=== PATIENT | male | born 1950 | race Caucasian/White ===

== ENCOUNTER 2023-10-05 09:41 | Day surgery (SDC) | payer MEDICARE, SELFPAY ==
[2023-10-04 10:00] VITALS: BMI 31.2
[2023-10-05 10:12] VITALS: BP 165/84; PULSE 63; RESP 18; TEMP 36.6; O2SAT 97
[2023-10-05] MEDS: LACTATED RINGERS 1000ML 1,000 ML 25 ML IV (10:12)
[2023-10-05 10:23] LABS: POC Glucose,Bedside 118 (70-110)
--- NOTE | 2023-10-05 10:31 | EXP.ANES.CKL ---
[facility] Disclaimer: The information contained in this section may have been updated after the patient was seen, as this information can be updated by other users. Medical History Hyperlipemia Diabetes type 2, controlled Hypertension Kidney stone Surgical History H/O lithotripsy Family History Other No significant family history Social History Smoking Status: Never smoker alcohol intake: never substance use type: denies use current occupational status: retired Travel in the last 8 weeks: None [facility] Anesthesia Checklist Patient Identification Patient Identification: Arm Band and Verbal (Name & ) Structural Data Admitted From: Home Planned Operative Procedure/s: Colonoscopy Consent for Planned Operative Procedure(s) Verified: Yes NPO Status Verified Time NPO: 00:00 Additional verifications Anesthesia Reactions: No Airway Assessment Mallampati Score:: Class III C-Spine Mobility Assessed: Yes TMJ Mobility Assessed: Yes Dentition: Poor Dentition Neurological Assessment Level of Consciousness: Awake Hx Seizures: No Numbness or tingling in extremities: No Anesthesia Plan Anesthesia Risk discussed: Yes Anesthesia Plan: Verified ASA Class: III Anesthesia Type: MAC
--- NOTE | 2023-10-05 10:42 | P.PCN_ITS ---
Procedure: Date: 10/05/23 Patient Date of :: 1950 Procedure Performed:: Total colonoscopy with multiple polypectomy Indications:: Patient is a 73-year-old male who presents for colonoscopy due to positive Cologuard. He has never had prior colonoscopy. Never had prior Cologuard. His younger brother apparently just recently underwent colonoscopy in [place], [place] for rectal bleeding and had approximately 2 dozen polyps. Performing Provider:: Balta Cerda MD Referring Provider:: Sadiq Uriostegui Sedation:: MAC sedation Procedure:: Patient history was obtained and appropriate physical examination was performed. Patient's medications and allergies were reviewed. Informed consent was obtained after explaining the benefits, alternatives, and risks of the procedure including, but not limited to, bleeding, perforation, missed lesions, and adverse reaction to anesthesia medications. Patient was transported to endoscopy procedure room. Patient was connected to monitoring devices. Throughout the procedure the patient's blood pressure, pulse, and oxygen saturations were monitored continuously. Patient identification and planned procedure were verified by the staff. Patient was positioned in lateral decubitus position. Digital anorectal exam was performed. Variable stiffness Olympus colonoscope was inserted and advanced under direct visualization to the cecum. Adequacy of the colonic preparation was noted. The colonoscope was unable to be advanced into the terminal ileum. The colonoscope was then slowly withdrawn while carefully examining the color, texture, anatomy, and integrity of the mucosoa circumferentially. Within the rectum retroflexion was performed. Colonoscope was then withdrawn. . IMPRESSION: Colonic preparation was poor to fair. High-volume trans colonoscopic irrigation and suctioning was performed and there was stool coating the kovacs particular the right colon this was unable to be completely cleared. He did have some scattered diverticuli. In the descending colon there was a moderate adenomatous appearing polyp removed with cold snare. In the proximal sigmoid colon there was an adenomatous appearing polyp removed with cold snare. In the mid sigmoid colon there was an adenomatous appearing polyp removed with cold snare. The rectosigmoid region there was a tiny polyp removed with cold snare. In the rectum there was an adenomatous appearing polyp removed with cold snare. There were also a couple of possible hyperplastic polyps, larger were taken with cold snare for a total of 3 rectal polyps. Retroflexion revealed internal prolapsing hemorrhoids. . Findings:: Suboptimal colonic preparation Scattered diverticuli Polyps as noted, total of 7 polyps removed. Approximately 5 or 6 appeared adenomatous. Prolapsing internal hemorrhoids Recommendations:: Recommend repeat colonoscopy with alternate maximum prep in 6 months or so given suboptimal preparation. Complications:: None immediately apparent Estimated blood obtained (mL): 2 Colonoscopy Component Colonoscopy Component Was a colonoscopy performed during today's procedure?: Yes Recommended follow up colonoscopy of at least 10 years?: No If no, follow up colonoscopy recommended in ___ years?: See above Reason for not recommending >/= 10 yr follow-up interval?: See above
[2023-10-05 10:44] VITALS: O2SAT 97
[2023-10-05 11:24] VITALS: BP 91/52; PULSE 61; RESP 18; TEMP 36.3; O2SAT 95
[2023-10-05 11:34] VITALS: BP 86/67; PULSE 58; RESP 16; O2SAT 96
[2023-10-05 11:44] VITALS: BP 100/58; PULSE 60; RESP 16; O2SAT 95
[2023-10-05 11:54] VITALS: BP 101/64; PULSE 57; RESP 16; TEMP 36.6; O2SAT 98
== END 2023-10-05 12:00 | disposition home or self-care (01) ==
PROVIDERS: PCP Nurse Practitioner Family; Visit Provider Surgery
PROC: 0DJD8ZZ Inspection of Lower Intestinal Tract, Via Natural or Artificial Opening Endoscopic (ICD-10-PCS; CPT 45385; principal; 2023-10-05 10:30)
DX: Z12.11 Encounter for screening for malignant neoplasm of colon (principal); E11.9 Type 2 diabetes mellitus without complications; D12.4 Benign neoplasm of descending colon; K63.5 Polyp of colon; D12.5 Benign neoplasm of sigmoid colon; R19.5 Other fecal abnormalities; K64.8 Other hemorrhoids; K57.92 Diverticulitis of intestine, part unspecified, without perforation or abscess without bleeding; Z91.199 Patient's noncompliance with other medical treatment and regimen due to unspecified reason
CPT/HCPCS: 45385; 82962; 88305; J2704

== ENCOUNTER 2024-04-11 08:15 | Day surgery (SDC) | payer MEDICARE, SELFPAY ==
[2024-04-09 13:41] VITALS: BMI 31.1
--- NOTE | 2024-04-11 08:28 | P.PNANES_ITS ---
[facility] Disclaimer: The information contained in this section may have been updated after the patient was seen, as this information can be updated by other users. Medical History Hyperlipemia Diabetes type 2, controlled Hypertension Kidney stone Surgical History H/O lithotripsy Family History Other No significant family history Social History (Updated 04/09/24 @ 13:35 by Salma Renee RN) Smoking Status: Never smoker alcohol intake: never substance use type: denies use current occupational status: retired Travel in the last 8 weeks: None [facility] Anesthesia Checklist Patient Identification Patient Identification: Arm Band, Family and Verbal (Name & ) Structural Data Admitted From: Home Planned Operative Procedure/s: Colonoscopy Consent for Planned Operative Procedure(s) Verified: Yes Verified Documents: Surgical Consent and History and Physical Additional verifications Fingerstick Blood Glucose: 85 Patient : No Anesthesia Reactions: No Cardiovascular Assessment Heart Sounds: S1 & S2 Pulse Rhythm: Irregular Peripheral Edema: No Airway Assessment Mallampati Score:: Class II C-Spine Mobility Assessed: Yes (FROM demonstrated) TMJ Mobility Assessed: Yes Dentition: Poor Dentition (Many missing. Nothing loose per pt.) Neurological Assessment Level of Consciousness: Awake, Alert, Appropriate and Follows Commands Hx Seizures: No Numbness or tingling in extremities: No Anesthesia Plan Anesthesia Risk discussed: Yes Anesthesia Plan: Verified Anesthesia Type: MAC
[2024-04-11 08:31] VITALS: BP 175/76; PULSE 66; RESP 18; TEMP 36.3; O2SAT 98; BMI 31.1
[2024-04-11] MEDS: LACTATED RINGERS 1000ML 1,000 ML 100 ML IV (08:37)
[2024-04-11 08:42] VITALS: O2SAT 96
[2024-04-11 09:38] VITALS: BP 144/70; PULSE 68; RESP 16; TEMP 37.1; O2SAT 100
--- NOTE | 2024-04-11 09:38 | P.PCN_ITS ---
Procedure: Date: 04/11/24 Patient Date of :: 1950 Procedure Performed:: Total colonoscopy with multiple polypectomy Indications:: Patient is a 73-year-old male. He had a positive Cologuard. I performed colonoscopy on 10/05/2023. At that time he had never had prior colonoscopy. He does state that his brother had recently undergone colonoscopy in [facility] and had approximately 2 dozen polyps removed. Colonoscopy on 10/05/2023 revealed suboptimal fair to poor preparation despite high-volume trans colonoscopic irrigation and suctioning. He had a total of 7 polyps removed. This included multiple tubular adenomas. Given the poor preparation and multiple adenomatous polyps early follow-up colonoscopy was recommended with multi day prep. He underwent prep with MiraLAX and magnesium citrate. Performing Provider:: Balta Cerda MD Referring Provider:: Sadiq Uriostegui Sedation:: MAC sedation Procedure:: Patient history was obtained and appropriate physical examination was performed. Patient's medications and allergies were reviewed. Informed consent was obtained after explaining the benefits, alternatives, and risks of the procedure including, but not limited to, bleeding, perforation, missed lesions, and adverse reaction to anesthesia medications. Patient was transported to endoscopy procedure room. Patient was connected to monitoring devices. Throughout the procedure the patient's blood pressure, pulse, and oxygen saturations were monitored continuously. Patient identification and planned procedure were verified by the staff. Patient was positioned in lateral decubitus position. Digital anorectal exam was performed. Variable stiffness Olympus colonoscope was inserted and advanced under direct visualization to the cecum. Adequacy of the colonic preparation was noted. The colonoscope was then slowly withdrawn while carefully examining the color, texture, anatomy, and integrity of the mucosoa circumferentially. Within the rectum retroflexion was performed. Colonoscope was then withdrawn. Impression: As the colonoscope was advanced there was a small diminutive polyp in the descending colon removed with biopsy forceps. As the colonoscope was advanced further there was a polyp at the hepatic flexure removed with cold snare. It was advanced to the cecum. Colonoscope was unable to be advanced into the terminal ileum. High-volume trans colonoscopic irrigation and suctioning was performed which allowed for only fair visualization as there was pasty stool adherent to the kovacs of the colon. There was an adenomatous appearing polyp in the cecum removed with cold snare. As the colonoscope was withdrawn there was noted to be moderate irregular adenomatous polyp removed with cold snare. Residual polyp tissue was removed with biopsy forceps. Alem ink was injected to bear the area. Distal to this in the descending colon there was a flat sessile 8 to 10 mm polyp removed with cold snare. In the rectosigmoid region there were a couple of hyperplastic appearing polyps removed with biopsy forceps. In the rectum there was an adenomatous appearing polyp removed with cold snare. A couple of hemoclips were deployed due to some minor oozing. . Findings:: Poor to fair preparation with pasty stool adherent to the kovacs despite high- volume trans colonoscopic irrigation and suctioning. Sigmoid diverticulosis. Polyps as noted above, total of 7 polyps removed Recommendations:: Likely repeat colonoscopy within 1 year with alternate maximum prep Complications:: None immediately apparent Estimated blood obtained (mL): 3 Colonoscopy Component Colonoscopy Component Was a colonoscopy performed during today's procedure?: Yes Recommended follow up colonoscopy of at least 10 years?: No If no, follow up colonoscopy recommended in ___ years?: 1 Reason for not recommending >/= 10 yr follow-up interval?: See above
[2024-04-11 09:48] VITALS: BP 144/82; PULSE 68; RESP 16; O2SAT 100
[2024-04-11 09:58] VITALS: BP 137/77; PULSE 60; RESP 16; O2SAT 100
[2024-04-11 10:05] VITALS: BP 132/74; PULSE 62; RESP 16; TEMP 37.1; O2SAT 100
[2024-04-11 19:33] LABS: POC Glucose,Bedside 85 (70-110)
== END 2024-04-11 10:06 | disposition home or self-care (01) ==
PROVIDERS: PCP Nurse Practitioner Family; Visit Provider Surgery
PROC: 0DJD8ZZ Inspection of Lower Intestinal Tract, Via Natural or Artificial Opening Endoscopic (ICD-10-PCS; principal; 2024-04-11 09:30)
DX: R19.5 Other fecal abnormalities (principal); Z86.0101 Personal history of adenomatous and serrated colon polyps; Z83.719 Family history of colon polyps, unspecified; K57.30 Diverticulosis of large intestine without perforation or abscess without bleeding; K63.5 Polyp of colon; E11.8 Type 2 diabetes mellitus with unspecified complications; Z79.84 Long term (current) use of oral hypoglycemic drugs
CPT/HCPCS: 45380; 45381; 45385; 82962; J2704; J7120

== ENCOUNTER 2025-04-17 06:13 | Day surgery (SDC) | payer MEDICARE, SELFPAY ==
[2025-04-17 06:47] VITALS: BP 165/88; PULSE 74; RESP 18; TEMP 36.7; O2SAT 97; BMI 29.7
--- NOTE | 2025-04-17 07:02 | EXP.GEN.HP ---
HPI HPI HPI: Patient is a 74-year-old male who presents for follow-up colonoscopy. I did colonoscopy on 10/05/2023 as an initial surveillance colonoscopy due to positive Cologuard. Patient's younger brother had a colonoscopy in [place] and had several dozen polyps removed. Colonoscopy which I performed on 10/05/2023 revealed some scattered diverticuli, prolapsing internal hemorrhoids, and at least 3 tubular adenomas. Notable was that he had a suboptimal preparation and therefore underwent repeat colonoscopy after 6 months on 04/11/2024. At that time once again he had a poor to fair preparation with pasty stool adherent to the kovacs despite high-volume trans colonoscopic irrigation and suctioning. He had 2 tubular adenomas and 2 sessile serrated adenomas. Given the early development of multiple precancerous polyps and poor preparation plan was made for 1 year repeat colonoscopy with maximum prep. [facility] Disclaimer: The information contained in this section may have been updated after the patient was seen, as this information can be updated by other users. Medical History (Updated 04/17/25 @ 07:08 by Balta Cerda MD) Sleep apnea Hyperlipemia Diabetes type 2, controlled Hypertension Kidney stone Surgical History H/O lithotripsy Family History (Updated 04/17/25 @ 07:01 by Samantha Cardona RN) Other Cancer Social History (Updated 04/17/25 @ 07:02 by Samantha Cardona RN) Smoking Status: Never smoker alcohol intake: never substance use type: denies use current occupational status: retired Travel in the last 8 weeks?: None caffeine: Yes Have you lived/traveled outside US in past 30 days?: No Contact w/someone who lives/traveled outside US past 30 days?: No Exposure to someone with infectious disease in past 14 days?: No Do you have a fever (greater than 100.4 F or 38 C)?: No Have you tested positive for COVID-19?: No Exposed to someone with COVID-19 in past 14 days?: No Do you have a sore throat?: No Do you have a cough?: No Do you have any weakness?: No Are you experiencing any nausea/vomitting?: No Do you have any diarrhea?: No Are you experiencing any unusual bleeding?: No Do you have any muscle aches/pain?: No Do you have any abdominal pain?: No Are you experiencing loss of taste or smell?: No Other Medical History Have you received the Pneumonia Vaccine: No Meds Home Medications and Allergies Home Medications ?Medication ?Instructions ?Recorded ?Confirmed ?Type cholecalciferol (vitamin D3) 125 125 mcg PO DAILY 10/04/23 04/17/25 History mcg (5,000 unit) tablet (Vitamin D3) dapagliflozin propanediol 5 mg 5 mg PO DAILY 10/04/23 04/17/25 History tablet (Farxiga) lisinopril 40 mg tablet 40 mg PO DAILY 10/04/23 04/17/25 History metformin 500 mg tablet 500 mg PO DAILY 10/04/23 04/17/25 History tamsulosin 0.4 mg capsule 0.4 mg PO HS 10/04/23 04/17/25 History simvastatin 10 mg tablet 20 mg PO HS 03/13/24 04/17/25 History sodium,potassium,mag sulfates 17.5 See Rx Instructions PO .COMPLEX 03/10/25 Rx gram-3.13 gram-1.6 gram oral soln #354 mL (Suprep Bowel Prep Kit) New Prescriptions to Start Prescriptions: Allergies Allergy/AdvReac Type Severity Reaction Status Date / Time No Known Allergies Allergy Verified 04/17/25 06:54 Exam Constitutional Constitutional: no acute distress *Routine HEENT Exam Head: Present normocephalic Eye: Present EOMI and PERRL ENT: Present mucous membranes moist *Routine Neck Exam Neck: Present supple; Absent lymphadenopathy *Routine Respiratory Exam Respiratory: Present CTA bilaterally *Routine Cardiovascular Exam Cardiovascular: Present RRR *Routine Abdominal Exam Abdominal: Present soft and normoactive bowel sounds; Absent tenderness *Routine Rectal Exam Rectal:: deferred *Routine Genitalia Exam Genitalia:: deferred *Routine Extremities Exam Extremities: Absent cyanosis, clubbing or edema *Routine Skin Exam Skin: Present warm; Absent rash *Routine Neurological Exam Neurological: Present alert and oriented X3 Assessment and Plan *Assessment and plan (1) Colon polyps: Status: Acute Category: Medical Code(s): K63.5 - Polyp of colon Plan Colonoscopy
[2025-04-17] MEDS: LACTATED RINGERS 1000ML 1,000 ML 50 ML IV (07:09)
[2025-04-17 07:11] LABS: POC Glucose,Bedside 101 gm/dL (70-110)
[2025-04-17 08:14] VITALS: BP 110/65; PULSE 61; RESP 15; TEMP 36.4; O2SAT 94
--- NOTE | 2025-04-17 08:16 | HMH.SCOPE ---
Procedure: Date: 04/17/25 Patient Date of :: 1950 Procedure Performed:: Total colonoscopy to cecum with multiple polypectomy Indications:: Patient is a 74-year-old male who presents for follow-up colonoscopy. I did colonoscopy on 10/05/2023 as an initial surveillance colonoscopy due to positive Cologuard. Patient's younger brother had a colonoscopy in [place] and had several dozen polyps removed. Colonoscopy which I performed on 10/05/2023 revealed some scattered diverticuli, prolapsing internal hemorrhoids, and at least 3 tubular adenomas. Notable was that he had a suboptimal preparation and therefore underwent repeat colonoscopy after 6 months on 04/11/2024. At that time once again he had a poor to fair preparation with pasty stool adherent to the kovacs despite high-volume trans colonoscopic irrigation and suctioning. He had 2 tubular adenomas and 2 sessile serrated adenomas. Given the early development of multiple precancerous polyps and poor preparation plan was made for 1 year repeat colonoscopy with maximum prep. He underwent Suprep. He states that the liquid he is passing of appears essentially like lemonade. . Performing Provider:: Balta Cerda MD Referring Provider:: Sadiq Uriostegui Sedation:: MAC sedation Procedure:: Patient history was obtained and appropriate physical examination was performed. Patient's medications and allergies were reviewed. Informed consent was obtained after explaining the benefits, alternatives, and risks of the procedure including, but not limited to, bleeding, perforation, missed lesions, and adverse reaction to anesthesia medications. Patient was transported to endoscopy procedure room. Patient was connected to monitoring devices. Throughout the procedure the patient's blood pressure, pulse, and oxygen saturations were monitored continuously. Patient identification and planned procedure were verified by the staff. Patient was positioned in lateral decubitus position. Digital anorectal exam was performed. Variable stiffness Olympus colonoscope was inserted and advanced under direct visualization to the cecum. Adequacy of the colonic preparation was noted. The colonoscope was then slowly withdrawn while carefully examining the color, texture, anatomy, and integrity of the mucosoa circumferentially. Within the rectum retroflexion was performed. Colonoscope was then withdrawn. Impression: Colonoscope was advanced to the cecum requiring some abdominal pressure due to redundancy of colon. Ileocecal valve and appendiceal orifice were clearly identified. There was some adherent pasty stool to the colon kovacs but with very high volume trans colonoscopic irrigation and suctioning this was able to be mostly cleared. In the descending colon there was a small adenomatous appearing polyp removed with cold snare. In the sigmoid colon there was a small polyp removed with cold snare. In the rectosigmoid region there were several polyps removed with biopsy. The rectum there were several polyps, largest removed with cold snare and remaining removed with biopsy forceps. Retroflexion revealed prolapsing hemorrhoids. He did have some left-sided diverticulosis. Findings:: Fair prep Polyps as noted Sigmoid diverticulosis Internal hemorrhoids Recommendations:: Repeat colonoscopy pending pathology, likely 2 years with actual maximum prep including Linzess Complications:: None immediately apparent Estimated blood obtained (mL): 1 Colonoscopy Component Colonoscopy Component Was a colonoscopy performed during today's procedure?: Yes Recommended follow up colonoscopy of at least 10 years?: No If no, follow up colonoscopy recommended in ___ years?: See above Reason for not recommending >/= 10 yr follow-up interval?: See above
--- NOTE | 2025-04-17 08:17 | EXP.ANES.CKL ---
[facility] Disclaimer: The information contained in this section may have been updated after the patient was seen, as this information can be updated by other users. Medical History (Updated 04/17/25 @ 07:08 by Balta Cerda MD) Sleep apnea Hyperlipemia Diabetes type 2, controlled Hypertension Kidney stone Surgical History H/O lithotripsy Family History (Updated 04/17/25 @ 07:01 by Samantha Cardona, LINDA) Other Cancer Social History (Updated 04/17/25 @ 07:02 by Samantha Cardona, LINDA) Smoking Status: Never smoker alcohol intake: never substance use type: denies use current occupational status: retired Travel in the last 8 weeks?: None caffeine: Yes Have you lived/traveled outside US in past 30 days?: No Contact w/someone who lives/traveled outside US past 30 days?: No Exposure to someone with infectious disease in past 14 days?: No Do you have a fever (greater than 100.4 F or 38 C)?: No Have you tested positive for COVID-19?: No Exposed to someone with COVID-19 in past 14 days?: No Do you have a sore throat?: No Do you have a cough?: No Do you have any weakness?: No Are you experiencing any nausea/vomitting?: No Do you have any diarrhea?: No Are you experiencing any unusual bleeding?: No Do you have any muscle aches/pain?: No Do you have any abdominal pain?: No Are you experiencing loss of taste or smell?: No [facility] Anesthesia Checklist Patient Identification Patient Identification: Arm Band Structural Data Admitted From: Home Planned Operative Procedure/s: Colonoscopy Consent for Planned Operative Procedure(s) Verified: Yes Verified Documents: Surgical Consent and History and Physical NPO Status Verified Time NPO: 03:15 (finished prep) Additional verifications Anesthesia Reactions: No Airway Assessment Mallampati Score:: Class II C-Spine Mobility Assessed: Yes TMJ Mobility Assessed: Yes Dentition: Poor Dentition Neurological Assessment Level of Consciousness: Awake, Alert and Appropriate Anesthesia Plan Anesthesia Risk discussed: Yes Anesthesia Plan: Verified ASA Class: II Anesthesia Type: MAC
[2025-04-17 08:24] VITALS: BP 140/81; PULSE 73; RESP 17; TEMP 36.4; O2SAT 96
[2025-04-17 08:34] VITALS: BP 114/78; PULSE 64; RESP 17; TEMP 36.4; O2SAT 95
[2025-04-17 08:44] VITALS: BP 140/82; PULSE 71; RESP 18; TEMP 36.4; O2SAT 95
== END 2025-04-17 09:00 | disposition home or self-care (01) ==
PROVIDERS: PCP Nurse Practitioner Family; Visit Provider Surgery
PROC: 0DJD8ZZ Inspection of Lower Intestinal Tract, Via Natural or Artificial Opening Endoscopic (ICD-10-PCS; principal; 2025-04-17 07:30)
DX: Z09 Encounter for follow-up examination after completed treatment for conditions other than malignant neoplasm (principal); D12.5 Benign neoplasm of sigmoid colon; K62.1 Rectal polyp; K63.5 Polyp of colon; K57.30 Diverticulosis of large intestine without perforation or abscess without bleeding; K64.8 Other hemorrhoids; E78.5 Hyperlipidemia, unspecified; I10 Essential (primary) hypertension; E11.9 Type 2 diabetes mellitus without complications; Z86.0101 Personal history of adenomatous and serrated colon polyps; Z79.84 Long term (current) use of oral hypoglycemic drugs; Z79.899 Other long term (current) drug therapy
CPT/HCPCS: 45380; 45385; 82962; 88305; J2003; J2704; J7120